=== PATIENT | female | born 1985 | race American Indian/Alaskan Native ===

== ENCOUNTER 2017-06-05 20:56 | Emergency (ER) | payer MEDICAID, OTHER ==
[2017-06-05 21:08] VITALS: O2SAT 97
[2017-06-05] MEDS ORDERED: Albuterol-Ipratrop 3 mg / 0.5 (3 ml) UD IH STA ×3 (21:22)
--- NOTE | 2017-06-05 21:26 | ED PDOC ---
HPI: SOB/CHF/COPD Time Seen by Provider: 06/05/17 21:12 Chief Complaint (Nursing): Shortness Of Breath Chief Complaint (Provider): sob, wheezing, cough History Per: Patient, Family History/Exam Limitations: no limitations Onset/Duration Of Symptoms: Days (1 week) Current Symptoms Are (Timing): Still Present Initiating Event: Upper Respiratory Illness, Out Of Medications Additional History Per: Patient, Family Additional Complaint(s): 31 y/o female history of asthma brought in by EMS for evaluation of possible asthma exacerbation. Mother states patient does not see a doctor for her asthma so does not have medications for her symptoms; which have been going on x 1 week now. Mother notes patient with persistent cough, sometimes productive of white sputum, nasal congestion, and as of 3 days ago wheezing and shortness of breath. Mother states tonight after eating dinner patient had a coughing spell and vomited up her dinner, which prompted ED visit. Denies fever, nausea, chest pain, palpitations, abdominal pain, leg pain/swelling, recent travel, sick contacts. Past Medical History Reviewed: Historical Data, Nursing Documentation, Vital Signs Vital Signs: Last Vital Signs Temp 98.5 F 06/05/17 23:58 Pulse 90 06/05/17 23:58 Resp 18 06/05/17 23:58 BP 140/96 H 06/05/17 23:58 Pulse Ox 97 06/05/17 23:58 - Medical History PMH: Asthma - Surgical History Surgical History: No Surg Hx - Family History Family History: States: Other Other Family History: asthma - Living Arrangements Living Arrangements: With Family - Social History Current smoker - smoking cessation education provided: No Alcohol: None Drugs: Denies - Home Medications Home Medications: Ambulatory Orders Medication Instructions Recorded Albuterol HFA [Ventolin HFA 90 1 - 2 puff IH Q4 PRN #1 inh 06/05/17 mcg/actuation (8 g)] Fluticasone Nasal [Flonase] 1 actuation NS BID #1 bottle 06/05/17 Oseltamivir [Tamiflu] 75 mg PO BID #9 cap 06/05/17 Promethazine/Codeine 5 ml PO Q8 PRN #75 ml 06/05/17 [Phenergan/Codeine Oral Syrup] predniSONE [Prednisone] 60 mg PO DAILY #12 tab 06/05/17 - Allergies Allergies/Adverse Reactions: Allergies Allergy/AdvReac Type Severity Reaction Status Date / Time No Known Allergies Allergy Verified 10/29/15 09:46 Review of Systems ROS Statement: Except As Marked, All Systems Reviewed And Found Negative ENT: Positive for: Nose Congestion Respiratory: Positive for: Cough, Wheezing Physical Exam - Reviewed Nursing Documentation Reviewed: Yes Vital Signs Reviewed: Yes - Physical Exam Appears: Positive for: Well, Non-toxic, Uncomfortable (coughing) Head Exam: Positive for: ATRAUMATIC, NORMAL INSPECTION, NORMOCEPHALIC Skin: Positive for: Normal Color ENT: Positive for: Nasal Congestion Cardiovascular/Chest: Positive for: Regular Rate, Rhythm Respiratory: Positive for: Decreased Breath Sounds, Wheezing Gastrointestinal/Abdominal: Positive for: Normal Exam Back: Positive for: Normal Inspection Extremity: Positive for: Normal ROM Neurologic/Psych: Positive for: Alert, Oriented - ECG ECG: Positive for: Viewed By Me (reviewed by ED attending) ECG Rhythm: Positive for: Sinus Tachycardia (105bpm) O2 Sat by Pulse Oximetry: 97 Pulse Ox Interpretation: Normal - Radiology X-Ray: Viewed By Me X-Ray Interpretation: No Acute Disease - Progress ED Course And Treament: flu, strep, chest xray, IV solumedrol, duonebs On re-eval, patient states she is feeling better. Wheezing improved. Vitals stable Patient educated on findings, discharged with rx Tamiflu (dose given in ED), Albuterol HFA, Prednisone, Promethazine with codeine, flonase. Advised follow up PMD 2-3 days. Fluids. Rest. Return to ED for worsening/concerning symptoms. Disposition - Clinical Impression Clinical Impression: Influenza A, Bronchospasm - Patient ED Disposition Is Patient to be Admitted: No Counseled Patient/Family Regarding: Studies Performed, Diagnosis, Need For Followup, Rx Given - Disposition Referrals: [facility] [Outside] Disposition: Routine/Home Disposition Time: 00:03 Condition: IMPROVED Prescriptions: Albuterol HFA [Ventolin HFA 90 mcg/actuation (8 g)] 1 - 2 puff IH Q4 PRN #1 inh PRN Reason: Wheezing Fluticasone Nasal [Flonase] 1 actuation NS BID #1 bottle Oseltamivir [Tamiflu] 75 mg PO BID #9 cap predniSONE [Prednisone] 60 mg PO DAILY #12 tab Promethazine/Codeine [Phenergan/Codeine Oral Syrup] 5 ml PO Q8 PRN #75 ml PRN Reason: Cough Instructions: Influenza (ED), Bronchospasm (ED) Forms: [employer] ([place])
[2017-06-05] MEDS ORDERED: Albuterol-Ipratrop 3 mg / 0.5 (3 ml) UD ONE (21:42)
[2017-06-05 23:58] VITALS: BP 140/96; PULSE 90; RESP 18; TEMP 98.5
--- NOTE | 2017-06-06 08:17 | RAD ---
HISTORY: cough, wheezing COMPARISON: No prior. TECHNIQUE: Chest PA and lateral FINDINGS: LUNGS: No active pulmonary disease. PLEURA: No significant pleural effusion identified. No pneumothorax apparent. CARDIOVASCULAR: Normal. OSSEOUS STRUCTURES: No significant abnormalities. VISUALIZED UPPER ABDOMEN: Normal. OTHER FINDINGS: None. IMPRESSION: No active disease.
--- NOTE | 2017-06-06 12:44 | CARD ---
APPROVED REPORT EKG Measurement Heart [id number] <Conclusion> Sinus tachycardia Otherwise normal ECG
== END 2017-06-06 00:24 | disposition home or self-care (01) ==
LOC: H.ER 20:56
DX: J44.9 Chronic obstructive pulmonary disease, unspecified (principal)
CPT/HCPCS: 71020; 81025; 87070; 87430; 87804; 93005; 96374; 99284; J2930

== ENCOUNTER 2017-06-26 17:56 | Emergency (ER) | payer MEDICAID, OTHER ==
[2017-06-26] MEDS ORDERED: Albuterol-Ipratrop 3 mg / 0.5 (3 ml) UD ONE ×3 (18:05→19:02)
[2017-06-26] MEDS ORDERED: Albuterol-Ipratrop 3 mg / 0.5 (3 ml) UD INH STA (18:09)
[2017-06-26] MEDS ORDERED: Albuterol-Ipratrop 3 mg / 0.5 (3 ml) UD IH STA ×2 (18:15→18:16)
[2017-06-26 18:18] VITALS: BP 135/88; PULSE 107; TEMP 97.6; O2SAT 100
--- NOTE | 2017-06-26 18:21 | ED PDOC ---
HPI: SOB/CHF/COPD Time Seen by Provider: 06/26/17 18:12 Chief Complaint (Nursing): Shortness Of Breath Chief Complaint (Provider): Shortness Of Breath History Per: Patient History/Exam Limitations: no limitations Current Symptoms Are (Timing): Still Present Additional Complaint(s): 31 y/o female with a past medical history of asthma who presents to the emergency department with a complaint of feeling short of breath x2 days. Associated with wheezing, cough, and productive green sputum. Reports no improvement with inhaler. Denies chest pain and fever. Past Medical History Reviewed: Historical Data, Nursing Documentation, Vital Signs Vital Signs: Last Vital Signs Temp 97.6 F 06/26/17 18:17 Pulse 107 H 06/26/17 18:17 Resp 16 06/26/17 18:37 BP 135/88 06/26/17 18:17 Pulse Ox 100 06/26/17 18:24 - Medical History PMH: Asthma - Family History Family History: States: Unknown Family Hx - Home Medications Home Medications: Ambulatory Orders Medication Instructions Recorded Albuterol HFA [Ventolin HFA 90 1 - 2 puff IH Q4 PRN #1 inh 06/05/17 mcg/actuation (8 g)] Fluticasone Nasal [Flonase] 1 actuation NS BID #1 bottle 06/05/17 Oseltamivir [Tamiflu] 75 mg PO BID #9 cap 06/05/17 Promethazine/Codeine 5 ml PO Q8 PRN #75 ml 06/05/17 [Phenergan/Codeine Oral Syrup] predniSONE [Prednisone] 60 mg PO DAILY #12 tab 06/05/17 - Allergies Allergies/Adverse Reactions: Allergies Allergy/AdvReac Type Severity Reaction Status Date / Time No Known Allergies Allergy Verified 10/29/15 09:46 Review of Systems ROS Statement: Except As Marked, All Systems Reviewed And Found Negative Constitutional: Negative for: Fever Cardiovascular: Negative for: Chest Pain Respiratory: Positive for: Cough, Shortness of Breath, Sputum (Green), Wheezing Physical Exam - Reviewed Nursing Documentation Reviewed: Yes Vital Signs Reviewed: Yes - Physical Exam Appears: Positive for: Non-toxic, No Acute Distress Head Exam: Positive for: ATRAUMATIC, NORMAL INSPECTION, NORMOCEPHALIC Skin: Positive for: Normal Color, Warm, Dry Cardiovascular/Chest: Positive for: Tachycardia (with regular rhythm). Negative for: Murmur Respiratory: Positive for: Rhonchi, Wheezing (Expiratory wheeze). Negative for : Normal Breath Sounds, Respiratory Distress Gastrointestinal/Abdominal: Positive for: Normal Exam, Soft. Negative for: Tenderness Extremity: Positive for: Normal ROM. Negative for: Tenderness, Swelling Neurologic/Psych: Positive for: Alert, Oriented (x3) - ECG O2 Sat by Pulse Oximetry: 100 (RA) Pulse Ox Interpretation: Normal Medical Decision Making Medical Decision Making: Time: 1814 Initial Impression: Shortness of breath Initial Plan: --Urine Preg --Chest x-ray --Duoneb 3 ml INH --Duoneb 3 ml INH --Duoneb 3 ml INH --Methylprednisolone 125 mg IVP --Reevaluation Scribe~Attestation: Documented by Sharon Carballo, acting as a scribe for Julian Lares MD. Provider Scribe~Attestation: All medical record entries made by the Scribe were at my direction and personally dictated by me. I have reviewed the chart and agree that the record accurately reflects my personal performance of the history, physical exam, medical decision making, and the department course for this patient. I have also personally directed, reviewed, and agree with the discharge instructions and disposition. Disposition - Clinical Impression Clinical Impression: Asthma - Patient ED Disposition Is Patient to be Admitted: Transfer of Care - Disposition Disposition: Transfer of Care Disposition Time: 19:00 Condition: FAIR Forms: [employer] (Vietnamese) Patient Signed Over To: Rolo Keene
[2017-06-26 18:38] VITALS: RESP 16
--- NOTE | 2017-06-26 19:24 | ED PDOC ---
- ECG O2 Sat by Pulse Oximetry: 100 (RA) Pulse Ox Interpretation: Normal Medical Decision Making Medical Decision Making: Time: 1899 --Patient was transferred from Dr. Lares to wi. --Pending chest x-ray and reevaluation. Time: 2105 Upon provider reevaluation patient reports improvement in symptoms, is medically stable upon discharge, and requires no further treatment in the ED at this time. Patient will be discharged home with Rx for Prednisone 60 mg. Counseling was provided and all questions were answered regarding diagnosis and need for follow up with primary care doctor. There is agreement to discharge plan. Return if symptoms persist or worsen. Clinical Impression: Asthma Scribe~Attestation: Documented by Sharon Carballo, acting as a scribe for Rolo Keene MD. Provider Scribe~Attestation: All medical record entries made by the Scribe were at my direction and personally dictated by me. I have reviewed the chart and agree that the record accurately reflects my personal performance of the history, physical exam, medical decision making, and the department course for this patient. I have also personally directed, reviewed, and agree with the discharge instructions and disposition. Disposition - Clinical Impression Clinical Impression: Asthma - POA Present On Arrival: None - Disposition Disposition: Routine/Home Disposition Time: 21:06 Condition: IMPROVED Prescriptions: predniSONE [predniSONE Tab] 60 mg PO QAM #12 tab Instructions: Asthma (ED) Forms: [employer] (Turkish)
--- NOTE | 2017-06-27 08:17 | RAD ---
HISTORY: sob COMPARISON: Chest radiograph 07/05/2017. TECHNIQUE: Chest PA and lateral FINDINGS: LUNGS: No active pulmonary disease. PLEURA: No significant pleural effusion identified. No pneumothorax apparent. CARDIOVASCULAR: Normal. OSSEOUS STRUCTURES: No significant abnormalities. VISUALIZED UPPER ABDOMEN: Normal. OTHER FINDINGS: None. IMPRESSION: No interval acute cardiopulmonary disease appreciated.
== END 2017-06-26 21:31 | disposition home or self-care (01) ==
LOC: H.ER 17:56
DX: J45.909 Unspecified asthma, uncomplicated (principal); R06.2 Wheezing
CPT/HCPCS: 71020; 81025; 94640; 96374; 99283; J2930